=== PATIENT | female | born 1985 | race African-American/Black ===

== ENCOUNTER 2019-01-26 13:43 | Emergency (ER) | payer OTHER ==
[~2019-01-26] VITALS: Ht 160 cm; Wt 65.8 kg
[~2019-01-26 13:43] MED LIST: CYCLOBENZAPRINE5 MG PO; DICLEGIS DR 101 EACH PO; FLAGYL500 MG PO; IBUPROFEN 600600 M1 PO; KEFLEX500 MG PO; NOHOMEMEDICATIONS; ONDANSETRON HCL4 M2 PO; PHENERGAN 25 MG25 M1 PO
[2019-01-26 14:20] LABS: ABSOLUTE NEUTROPHILS 4.1 thou/uL (1.4-8.2); BASOPHILS 0.7 % (0.0-2.0); HEMOGLOBIN 12.6 gm/dL (12.0-15.0); LYMPHOCYTES 20.1 % (24.0-44.0); MCH 28.8 pg (26.0-34.0); MCHC 34.2 g/dL (28.0-37.0); MCV 84.3 fL (80.0-100.0); MONOCYTES 8.8 % (1.0-8.0); PLATELET COUNT 252 thou/uL (150-400); POLYS 70.4 % (36.0-66.0); RBC 4.39 mil/uL (4.20-5.00); RDW 14.4 % (10.5-14.5); WBC 5.9 thou/uL (4.0-11.0)
[2019-01-26 14:24] LABS: URINE BILIRUBIN NEGATIVE (Negative); URINE BLOOD TRACE (Negative); URINE CLARITY CLEAR; URINE COLOR YELLOW; URINE GLUCOSE-RANDOM* NEGATIVE (Negative); URINE KETONES 2+ (Negative); URINE LEUKOCYTES-REFLEX NEGATIVE (Negative); URINE PROTEIN (DIPSTICK) TRACE (Negative); URINE SPECIFIC GRAVITY 1.025 (1.005-1.035); URINE UROBILINOGEN 0.2 E.U./dl (0.2-1.0)
[2019-01-26 14:26] LABS: CALCIUM 9.4 mg/dL (8.5-10.1); CREATININE 0.8 mg/dL (0.6-1.0)
[2019-01-26 14:34] LABS: POTASSIUM 2.9 mmol/L (3.5-5.1)
[2019-01-26 14:35] LABS: URINE NITRITE-REFLEX POSITIVE (Negative)
[2019-01-26 14:37] LABS: CASTS None Seen /LPF (None Seen); CRYSTALS None Seen /LPF (None Seen); SQUAMOUS 4-10 Moderate /LPF (0-3); URINE WBC-REFLEX 0-5 Rare /HPF (0-5)
[2019-01-26 14:38] LABS: BACTERIA-REFLEX 1-9 Few /HPF (None Seen); URINE RBC 0-2 Rare /HPF (0-2)
[2019-01-26 18:20] VITALS: BP 129/79
== END 2019-01-26 18:21 | disposition short-term general hospital (02) ==
LOC: ER 13:43
PROVIDERS: Physician Assistant
DX: O21.0 Mild hyperemesis gravidarum (principal); O99.280 Endocrine, nutritional and metabolic diseases complicating pregnancy, unspecified trimester; E87.6 Hypokalemia; O23.40 Unspecified infection of urinary tract in pregnancy, unspecified trimester; Z3A.00 Weeks of gestation of pregnancy not specified; Z90.49 Acquired absence of other specified parts of digestive tract

== ENCOUNTER 2020-12-02 17:15 | Emergency (ER) | payer OTHER ==
[~2020-12-02] VITALS: Ht 157.5 cm; Wt 64.9 kg
[2020-12-02 18:15] LABS: URINE BILIRUBIN NEGATIVE (Negative); URINE BLOOD TRACE (Negative); URINE CLARITY CLEAR; URINE COLOR YELLOW; URINE GLUCOSE-RANDOM* NEGATIVE (Negative); URINE KETONES NEGATIVE (Negative); URINE LEUKOCYTES-REFLEX NEGATIVE (Negative); URINE NITRITE-REFLEX NEGATIVE (Negative); URINE PROTEIN (DIPSTICK) TRACE (Negative); URINE SPECIFIC GRAVITY >= 1.030 (1.005-1.035); URINE UROBILINOGEN 0.2 E.U./dl (0.2-1.0)
[2020-12-02] MEDS ORDERED: HYDROCODON-ACE1 EAC7 PO (20:34)
[2020-12-02] MEDS ORDERED: PREDNISONE 20 M20 M1 PO (20:34)
[2020-12-02 21:11] VITALS: BP 144/103
== END 2020-12-02 21:11 | disposition home or self-care (01) ==
LOC: ER 17:15
PROVIDERS: Emergency Medicine
DX: M54.6 Pain in thoracic spine (principal); Z98.890 Other specified postprocedural states

== ENCOUNTER 2021-02-17 16:45 | Emergency (ER) | payer OTHER ==
[~2021-02-17] VITALS: Ht 157.5 cm; Wt 65.8 kg
[~2021-02-17 16:45] MED LIST changes: +HYDROCODON-ACE1 EAC7 PO; +PREDNISONE 20 M20 M1 PO
[2021-02-17 16:53] VITALS: BP 145/110
[2021-02-17] MEDS ORDERED: NORCO5 PO (19:01)
[2021-02-17] MEDS ORDERED: CYCLOBENZAPRINE5 MG PO (19:01)
== END 2021-02-17 19:09 | disposition home or self-care (01) ==
LOC: ER 16:45
DX: M54.6 Pain in thoracic spine (principal); Z98.890 Other specified postprocedural states; Z79.899 Other long term (current) drug therapy; V89.2XXA Person injured in unspecified motor-vehicle accident, traffic, initial encounter; Y93.I9 Activity, other involving external motion; Y92.488 Other paved roadways as the place of occurrence of the external cause; Y99.8 Other external cause status